=== PATIENT | male | born 1935 | race Caucasian/White ===

== ENCOUNTER → 2020-04-20 14:49 | Outpatient (CLI) | payer OTHER, SELFPAY ==
--- NOTE | 2020-04-20 | DI.RAD.S_ITS ---
PROCEDURE: XR LUMBAR SPINE MIN 4V INDICATIONS: lumbar spondylosis TECHNIQUE: 5 views of the lumbar spine acquired. COMPARISON: None. FINDINGS: Bones: 5 nonrib-bearing vertebrae are present. There is grade 1 anterolisthesis of L4 on L5 secondary to facet hypertrophy. No vertebral body compression fractures. No suspicious bony lesions. Mild multilevel degenerative changes are seen. Soft tissues: Overlying bowel gas pattern is normal. No suspicious soft tissue calcifications. Atherosclerotic calcifications are seen in the aorta. Flexion/extension: There is limited range of motion, with unchanged anterolisthesis of L4 on L5. IMPRESSION: Grade 1 anterolisthesis of L4 on L5 without abnormal motion on flexion or extension views. Lumbar range of motion is mildly limited. Dictated by: Jesus Norman M.D. on 04/20/2020 at 17:06 Approved by: Jesus Norman M.D. on 04/20/2020 at 17:08
== END ==
PROVIDERS: PCP Registered Nurse; Referring Provider Pain Medicine Pain Medicine; Visit Provider Pain Medicine Pain Medicine
DX: M47.816 Spondylosis without myelopathy or radiculopathy, lumbar region (principal); M43.16 Spondylolisthesis, lumbar region
CPT/HCPCS: 72110